=== PATIENT | female | born 1990 | race Caucasian/White ===

== ENCOUNTER → 2016-05-23 | Outpatient (CLI) | payer OTHER ==
[2016-05-23 15:40] LABS: BASOPHILS # (AUTO) 0.03 10*3/UL; BASOPHILS % (AUTO) 0.4 % (0-1); EOSINOPHILS % (AUTO) 2.1 % (0-8); HEMATOCRIT 40.1 % (37.0-47.0); HEMOGLOBIN 13.6 g/dL (12.0-16.0); IMM GRAN % (AUTO) 0.1 % (0-5); IMM GRAN# (AUTO) 0.01 10*3/UL; LYMPHOCYTES # (AUTO) 2.29 10*3/uL; LYMPHOCYTES % (AUTO) 30.1 % (10-50); MEAN CORPUSCULAR HEMOGLOBIN 29.2 PG (27-31); MEAN CORPUSCULAR HGB CONC 33.9 g/dL (33-37); MEAN PLATELET VOLUME 10.5 FL (7.4-12.2); MONOCYTES # (AUTO) 0.68 10*3/UL (0.3-0.8); MONOCYTES % (AUTO) 8.9 % (5-15); NEUTROPHILS # (AUTO) 4.45 10*3/UL; NEUTROPHILS % (AUTO) 58.4 % (50-80); RDW COEFFICIENT OF VARIATION 13.2 % (11.5-14.5); RED BLOOD COUNT 4.65 10^6/uL (4.20-5.40); WHITE BLOOD COUNT 7.62 10^3/uL (4.8-10.8)
[2016-05-23 15:44] LABS: PLATELET MORPHOLOGY COMMENT NORMAL MORPHOLOGY (NORM)
[2016-05-23 15:47] LABS: ASPARTATE AMINO TRANSFERASE 26 IU/L (8-39); BILIRUBIN,TOTAL 0.8 mg/dL (0.3-1.2); BLOOD UREA NITROGEN 17 mg/dL (7-22); BUN/CREATININE RATIO 21.25 (6-20); CALCIUM 10.4 mg/dL (8.7-10.7); CHLORIDE 102 meq/L (98-112); CREATININE 0.8 mg/dL (0.50-1.20); EST GLOMERULAR FILTRATION > 60 (>60 ml/min/1.73m(2)); GLUCOSE 74 mg/dL (78-110); POTASSIUM 4.6 meq/L (3.8-5.2); SODIUM 141 meq/L (135-145); TOTAL PROTEIN 8.1 g/dL (6.1-8.0)
== END ==
LOC: MOB LAB 12:05
PROVIDERS: ATTEND Student in an Organized Health Care Education/Training Program
DX: L29.9 Pruritus, unspecified (principal)
CPT/HCPCS: 36415; 80053; 84443; 85025

== ENCOUNTER 2018-10-01 06:08 | Inpatient (IN) ==
[~2018-10-01 06:08] MED LIST: CITRIC ACID/SODIUM CITRATE 30 ML CUP PO ONE; CefOXitin Inj 2 GM in Sodium Chloride 0.9% 100 ML IV ONE; FAMOTIDINE 20 MG/2 ML VIAL IVP ONE; LIDOCAINE HCL 2 % 10 ML JELLY URO-JECT TOPICAL PRN; LIDOCAINE W/ SODIUM BICARB 0.5 ML SYR SUBD PRN; Lactated Ringers 1,000 ML PRIMARY IV ONE; Metoclopramide Inj 10 MG/2 ML VIAL IV ONE
[2018-10-01] MEDS ORDERED: Lactated Ringers 1,000 ML PRIMARY IV SCH (06:15)
[2018-10-01] MEDS ORDERED: Oxytocin 20 Units + LR 20 UNIT/1,000 ML BAG IV SCH ×2 (06:15→11:04)
[2018-10-01 06:47] LABS: Hematocrit [HCT] 36.3 % (37.0-47.0); Hemoglobin [HGB] 12.3 g/dL (12.0-16.0); MEAN CORPUSCULAR HEMOGLOBIN 30.7 PG (27-31); MEAN CORPUSCULAR HGB CONC 33.9 g/dL (33-37); MEAN CORPUSCULAR VOLUME 90.5 FL (81-99); MEAN PLATELET VOLUME 9.6 FL (7.4-12.2); RED BLOOD COUNT 4.01 10^6/uL (4.20-5.40)
[2018-10-01] MEDS ORDERED: MORPHINE SULFATE/PF 10 MG/10 ML AMPULE ONE (07:17)
[2018-10-01] MEDS ORDERED: OXYTOCIN 10 UNIT/1 ML ONE (07:25)
[2018-10-01] MEDS ORDERED: ePHEDrine Inj 50 MG/ML AMP ONE (07:25)
[2018-10-01] MEDS ORDERED: ONDANSETRON 4 MG/2 ML VIAL ONE (08:28)
[2018-10-01] MEDS ORDERED: KETOROLAC 30 MG/1 ML VIAL ONE (08:37)
[2018-10-01] MEDS ORDERED: LIDOCAINE W/ SODIUM BICARB 0.5 ML SYR SUBD PRN (09:52)
[2018-10-01] MEDS ORDERED: HYDROmorphone 2 MG/1 ML IVP PRN (09:52)
--- NOTE | 2018-10-01 09:53 | CRNA.PROGR ---
Anesthesia Time - Procedure/Recovery Time Start Date: 10/01/18 End Date: 10/01/18 Anesthesia : Time In: 07:53 Anesthesia : Time Out: 09:52 Anesthesia : Total Time: 119 - Total Anesthesia Time Total Anesthesia Time (minutes): 119 - Other Weight: 99.847 kg Height: 5 ft 7 in Body Mass Index (BMI): 34.4 Physical Status: P2 Anesthesia Type: Spinal Block Obstetrics: C/S anesthesia only
--- NOTE | 2018-10-01 09:54 | CRNA.PROGR ---
Anesthesia Recovery Phase I - Post Anesthesia Evaluation Patient's Condition on Arrival in Phase I: Stable Pain Level: 1
--- NOTE | 2018-10-01 09:56 | CRNA.PROCE ---
Central Neuraxis Block Placemt - - Safety Measures: Time Out Taken - - Type of Block: Subarachnoid Reason for Block: Surgical Moniters Used During Block: EKG, SPO2, NIBP Skin Prep Used: ChloroPrep Draped: No Skin Infiltration - Enter Amount Used in Comment Field: 1% Xylocaine (mL): Yes (skin wheal) Spinal Needle Used: 25 Shanika 80 mm Local Anesthetic - Enter Amount Used in Comment Field: 0.75 % Bupivacaine with Dextrose (ml): Yes (2ml) Additive Used - Enter Amount Used in Comment Field: Preservative Free Morphine (mg): Yes (.2mg) Bioclusive Dressing Applied: No Anesthesia Time - Other Weight: 99.847 kg Height: 5 ft 7 in Body Mass Index (BMI): 34.4
--- NOTE | 2018-10-01 10:09 | OB.OP.NOTE ---
Operative Report Surgeon: Bertin Lactation Coordinator: Roc Grande MD Anesthesia Type: Regional Anesthesia Provider: Taiwo Andrade CRNA Surgery Date: 10/01/18 Preoperative Diagnosis: Term , h/o prior LTCS Postoperative Diagnosis: Term AGA male , 7lbs 5.9ozs, apgars 10,10. Uterine window. Ventral abdominal wall hernia Procedure: Repeat LTCS, hernia repair Complications: none apparent Estimated Blood Loss (mL): 300 Urine Output (mL): 150 Fluids: 1500 Indications: We do not offer vaginal after section trials at our facility and the patient did not desire this. She is requesting a repeat section. Description of Procedure: The patient was taken to the operating room where spinal anesthesia was found to be adequate. She was then prepared and draped in the normal sterile fashion in the dorsal supine position with a leftward tilt, a mcnair catheter was placed. A Pfannenstiel skin incision was then made with the scalpel over her prior incision and carried through to the underlying layer of fascia with the Bovie. The fascia was incised in the midline and the incision extended laterally with the Bovie. The superior aspect of the fascial incision was then grasped with the Marni clamps, elevated, and the underlying rectus muscles dissected off bluntly and with cautery as there were notable adhesions. Attention was then turned to the inferior aspect of this incision which, in a similar fashion, was grasped with the Marni clamps and the rectus muscles dissected off both bluntly and with the Bovie. The rectus muscle was then in the midline, and the peritoneum identified and entered digitally. The peritoneal incision was then extended superiorly and inferiorly with good visualization of the bladder. The Viet retractor was then inserted and the vesicouterine peritoneum was identified. The lower uterine segment was quite thin with a window on the R side. A bladder flap was created with gwendolyn. The lower uterine segment was then incised in a transverse fashion with the scalpel. The uterine incision was then extended laterally in a blunt fashion and extended superiorly to avoid vessels with bandage scissors. The infant's head was delivered atraumatically from an OP presentation. The nose and mouth were suctioned with the bulb suction and the cord clamped and cut after 60 seconds for delayed cord clamping. The was handed off to the awaiting nurse. Cord gases and cord blood were sent for analysis. The placenta was then removed manually; the uterus exteriorized, and cleared of all clots and debris. The uterine incision was repaired with 0 Vicryl in a running, locked fashion. A couple of figure of 8 sutures were used for hemostasis along the upper edge of the uterine incision. A second layer of the same suture was used to obtain excellent hemostasis. The peritoneal cavity was then copiously irrigated with warm saline. The uterus was returned to the abdomen. The paracolic gutters were copiously irrigated with warm saline and a second look at the uterine incision continued to reveal excellent hemostasis. The peritoneum was closed with 3-0 Vicryl. An anterior abdominal wall hernia was noted about midway between the incision and the umbilicus, this was closed with 0-vicryl in a running locking fashion. The fascia was reapproximated with looped 0-PDS in a running fashion. The subcutaneous space was irrigated copiously with warm saline and then closed first with 3-0 Vicryl in two layes and then more superficially with Insorb absorbable sutures. The skin was reapproximated with Steri-Strips and a Silverlon dressing applied. Fundal massage was completed with no clots in vaginal vault. The patient tolerated the procedure well. Sponge, lap, and needle counts were correct x2. Mefoxin was given preoperatively less than one hour prior to incision time. The patient was taken to the recovery room in stable condition.
[2018-10-01] MEDS ORDERED: CALCIUM CARBONATE 500 MG (TUMS) CHEWABLE TABLET PO PRN (11:04)
[2018-10-01] MEDS ORDERED: FAMOTIDINE 20 MG/2 ML VIAL IVP PRN (11:04)
[2018-10-01] MEDS ORDERED: diphenhydrAMINE 25 MG CAPSULE PO PRN (11:04)
[2018-10-01] MEDS ORDERED: BUTORPHANOL TARTRATE 2 MG/1 ML VIAL IVP PRN (11:04)
[2018-10-01] MEDS ORDERED: KETOROLAC 15 MG/1 ML VIAL IVP SCH (11:04)
[2018-10-01] MEDS ORDERED: LANOLIN HPA 40 GM TUBE TOPICAL PRN (11:04)
[2018-10-01] MEDS ORDERED: ONDANSETRON 4 MG/2 ML VIAL IVP PRN (11:04)
[2018-10-01] MEDS ORDERED: diphenhydrAMINE 50 MG/1 ML VIAL IV PRN (11:04)
[2018-10-01] MEDS ORDERED: D5-LR 1,000 ML PRIMARY IV SCH (11:04)
[2018-10-01] MEDS ORDERED: Naloxone Inj 0.01 MG, Sodium Chloride 0.9% vial 1 ML IVP PRN ×2 (11:04)
[2018-10-01] MEDS ORDERED: Nalbuphine Inj 20 MG/ML Ampule IVP PRN (11:04)
[2018-10-01] MEDS: KETOROLAC 15 MG/1 ML VIAL IVP SCH ×2 (14:17→20:34)
[2018-10-02] MEDS: KETOROLAC 15 MG/1 ML VIAL IVP SCH ×2 (02:27→08:36)
[2018-10-02 06:47] LABS: Hematocrit [HCT] 33.5 % (37.0-47.0); Hemoglobin [HGB] 11.2 g/dL (12.0-16.0); MEAN CORPUSCULAR HEMOGLOBIN 30.9 PG (27-31); MEAN CORPUSCULAR HGB CONC 33.4 g/dL (33-37); MEAN CORPUSCULAR VOLUME 92.5 FL (81-99); MEAN PLATELET VOLUME 9.6 FL (7.4-12.2); RED BLOOD COUNT 3.62 10^6/uL (4.20-5.40)
[2018-10-02] MEDS: Senna/Docusate Tab 1 TAB TAB PO SCH ×2 (08:35→21:51)
[2018-10-02] MEDS: Prenatal Multivitamin Tab 1 TAB TAB PO SCH (08:35)
[2018-10-02] MEDS ORDERED: MMR VACCINE 12500 UNIT/0.5 ML SUBCUT ONE (12:00)
[2018-10-02] MEDS: IBUPROFEN 800 MG TABLET PO SCH ×2 (14:42→21:51)
--- NOTE | 2018-10-02 17:05 | OB.PROGRES ---
Subjective Post Day: 1 Pain Management: PO Bentley Catheter: No Flatus: Yes Lochia Color: Rubra/Red Small 10-25 ml Diet: Regular Feeding Method: Exculsively Ambulating: Yes Objective - General General Appearance: POSITIVE: No Acute Distress, Cooperative - Cardiovacular Cardiovascular Exam: POSITIVE: RRR Edema: +1 Pedal Edema Extremities: Negative Anson's - Bilaterally - Respiratory Respiratory Exam: POSITIVE: Clear to Auscultation - Bilaterally, Breathing Non Labored - Abdomen Bowel Sounds: Present Abdominal Wound Assessment: Silverlone Dressing - Fundus/Lochia/Perineum Uterus Consistency: Firm Uterus Position: POSITIVE: Below Umbilicus Assesstment / Plan (1) Status post repeat low transverse section Current Visit: Yes Status: Acute Support Text: 27 yo G2 now P2, POD 1 s/p repeat LTCS -Pain well controlled (I did send in Rx's to [facility] for percocet 5/325 #30 and motrin 800mg #60) -Tolerating a regular diet -Worried about BM as that was terribly painful after primary , she is on sennakot here. Plans to take milk of magnesia when she goes home -Breast feeding is going well -H/H stable postop -Dr. Grande will round and discharge tomorrow if appropriate, f/u with me on for wound check Objective : Data - Labs CBC and BMP: 10/02/18 06:30 - Vital Signs Vital Signs and I&O: Vital Signs - Last Taken Temperature 98.3 F 10/02/18 09:00 Pulse Rate 84 10/02/18 09:00 Respiratory Rate 16 10/02/18 09:00 Blood Pressure 112/68 10/02/18 09:00 Pulse Ox 96 10/02/18 09:00 Intake and Output (24hr x 4 totals) 09/30/18 10/01/18 10/02/18 10/03/18 05:59 05:59 05:59 05:59 Intake Total 7889 / 7889 Output Total 3720 / 3720 Balance 4169 / 4169
[2018-10-02] MEDS: oxyCODONE-ACETAMINOPHEN 5-325 TAB PO PRN (18:41)
[2018-10-02 20:22] VITALS: RESP 14
[2018-10-03 05:43] VITALS: BP 121/72; TEMP 97.9; O2SAT 97
[2018-10-03] MEDS: IBUPROFEN 800 MG TABLET PO SCH (07:03)
--- NOTE | 2018-10-03 07:35 | OB.PROGRES ---
Subjective Post Day: 2 Pain Management: PO Bentley Catheter: No Flatus: Yes Lochia Color: Serosa/Brown Scant < 10 ml Diet: Regular [place] Feeding Method: Exculsively Ambulating: Yes Concerns / Additional Information: The patient desires to go home. The patient states that she is feeling well. Much better than last . Objective - General General Appearance: POSITIVE: No Acute Distress, Cooperative - Cardiovacular Cardiovascular Exam: POSITIVE: RRR Edema: No Pedal Edema Extremities: Negative Anson's - Bilaterally - Respiratory Respiratory Exam: POSITIVE: Clear to Auscultation - Bilaterally - Abdomen Abdominal Wound Assessment: Silverlone Dressing Other Abdominal Exam Details: Nondistended, soft, no guarding or rebound. Appropriately tender - Fundus/Lochia/Perineum Uterus Consistency: Firm Assesstment / Plan Assessment / Plan: Assessment: Postoperative day #2 status post repeat section. Patient doing well. Patient desires to go home. Plan: Discharge home today Patient has follow-up appointment with Dr. Denton next for her and the baby Usual postoperative instructions Usual instructions including depression symptoms and signs The patient's medications were prescribed previously. Patient's will pick these up If the Silverlon dressing starts to detach, the patient should remove the dressing completely. The patient should call or return for fever, increasing abdominal pain or not feeling well
--- NOTE | 2018-10-03 07:49 | DCSUMMARY ---
Hospitalization Summary Admit Date: 10/01/18 Discharge Date: 10/03/18 Primary Diagnosis:: IUP 39 weeks with history of section Secondary Diagnosis:: Patient desires repeat section Primary Surgery and Date: 10/01/2018. Repeat low transverse section Delivery Type: Hospital Course: Uncomplicated / Postop Complications: None apparent [place] Complications: None apparent Exam - Vitals Vital Signs: Vital Signs Temperature 97.9 F Temperature Source Oral Pulse Rate [Apical] 70 Pulse Rate [Pulse Oximeter] 71 Pulse Rate 70 Respiratory Rate 14 Blood Pressure [Left Arm] 121/72 Blood Pressure [Right Arm] 120/75 Blood Pressure 103/56 Pulse Ox 97 Oxygen Flow Rate 1 Oxygen Delivery Method Room Air Height 5 ft 7 in Weight 220 lb 2 oz
[2018-10-03] MEDS: Prenatal Multivitamin Tab 1 TAB TAB PO SCH (08:48)
[2018-10-03] MEDS: Senna/Docusate Tab 1 TAB TAB PO SCH (08:48)
[2018-10-03] MEDS: oxyCODONE-ACETAMINOPHEN 5-325 TAB PO PRN (08:48)
== END 2018-10-03 11:33 | disposition home or self-care (01) | DRG 788 ==
LOC: OBOR 06:08 → OBIP 10:01
PROVIDERS: ADMIT Student in an Organized Health Care Education/Training Program; ATTEND Student in an Organized Health Care Education/Training Program